=== PATIENT | female | born 1975 | race Caucasian/White ===

== ENCOUNTER 2021-11-12 22:01 | Emergency (ER) | payer MEDICAID ==
[2021-11-13] MEDS ORDERED: PEPCID20 MG PO (03:31)
[2021-11-13] MEDS ORDERED: PREDNISONE 20 M20 MG PO (03:31)
[2021-11-13] MEDS ORDERED: BENADRYL25 MG PO (03:31)
== END 2021-11-13 03:56 | disposition home or self-care (01) ==
LOC: ER1 22:01
DX: T78.40XA Allergy, unspecified, initial encounter (principal); Z88.1 Allergy status to other antibiotic agents
CPT/HCPCS: 99283

== ENCOUNTER → 2021-12-20 | Outpatient (CLI) | payer OTHER ==
[~2021-12-20] MED LIST: BENADRYL25 MG PO; PEPCID20 MG PO; PREDNISONE 20 M20 MG PO
== END ==
LOC: WCC 08:40
DX: S81.801A Unspecified open wound, right lower leg, initial encounter (principal); M79.651 Pain in right thigh; G40.89 Other seizures; H91.90 Unspecified hearing loss, unspecified ear; Z88.0 Allergy status to penicillin; X58.XXXA Exposure to other specified factors, initial encounter